=== PATIENT | female | born 1975 | race Caucasian/White ===

== ENCOUNTER 2022-01-03 22:49 | Emergency (ER) | payer SELFPAY ==
[2022-01-03 23:53] LABS: ACETAMINOPHEN <2.0 ug/mL; BLOOD UREA NITROGEN,BUN 8 mg/dL (7.0-18.0); CARBON DIOXIDE,CO2 28.7 mmol/L (21.0-32.0); CHLORIDE,CL 111 mmol/L (98-107); ESTIMATED GFR 109 mL/min (>60); GLUCOSE RANDOM 110 mg/dL (74-106); POTASSIUM,K 3.5 mmol/L (3.5-5.1); SODIUM,NA 149 mmol/L (136-145)
[2022-01-03] MEDS ORDERED: Cephalexin 500 MG Cap PO STA (23:53)
== END 2022-01-04 03:11 | disposition home or self-care (01) ==
LOC: MW.ED 22:49
DX: S61.512A Laceration without foreign body of left wrist, initial encounter (principal); S61.511A Laceration without foreign body of right wrist, initial encounter; F32.9 Major depressive disorder, single episode, unspecified; Z20.822 Contact with and (suspected) exposure to COVID-19; X78.9XXA Intentional self-harm by unspecified sharp object, initial encounter
CPT/HCPCS: 36415; 80053; 80143; 80179; 80305; 80307; 81003; 84443; 84703; 85025; 87635; 93005; 99284; A9270; U0002

== ENCOUNTER 2022-01-19 20:17 | Emergency (ER) | payer MEDICAID ==
[2022-01-19] MEDS ORDERED: Diphtheria,Pertussis(Acell),Tetanus Vaccine 0.5 ML Syringe IM ONE (20:19)
[2022-01-19] MEDS ORDERED: Sodium Chloride 0.9% 1,000 ML IV ONE (21:51)
[2022-01-19 22:47] LABS: ACETAMINOPHEN <2.0 ug/mL; BLOOD UREA NITROGEN,BUN 9 mg/dL (7.0-18.0); CARBON DIOXIDE,CO2 30.8 mmol/L (21.0-32.0); CHLORIDE,CL 105 mmol/L (98-107); GLUCOSE RANDOM 116 mg/dL (74-106); POTASSIUM,K 3.3 mmol/L (3.5-5.1); SODIUM,NA 146 mmol/L (136-145)
[2022-01-19 22:48] LABS: ESTIMATED GFR 93 mL/min (>60)
== END 2022-01-20 02:15 | disposition home or self-care (01) ==
LOC: MW.ED 20:17
DX: S61.512A Laceration without foreign body of left wrist, initial encounter (principal); F10.129 Alcohol abuse with intoxication, unspecified; Z23 Encounter for immunization; X58.XXXA Exposure to other specified factors, initial encounter
CPT/HCPCS: 36415; 80053; 80143; 80179; 80307; 83605; 83735; 84443; 85025; 87040; 90471; 90715; 96360; 99284; J7030

== ENCOUNTER 2022-02-03 01:50 | Emergency (ER) | payer MEDICAID | END 2022-02-03 02:48 | LOC: MW.ED 01:50 | DX: Z02.89 Encounter for other administrative examinations (principal) | CPT/HCPCS: 99282; 99283 ==

== ENCOUNTER 2022-02-09 10:14 | Emergency (ER) | payer MEDICAID | END 2022-02-09 12:22 | disposition home or self-care (01) | LOC: MW.ED 10:14 | DX: F10.10 Alcohol abuse, uncomplicated (principal) | CPT/HCPCS: 99283 ==

== ENCOUNTER 2022-02-13 19:57 | Emergency (ER) | payer MEDICAID ==
[2022-02-13] MEDS ORDERED: Sodium Chloride 0.9% 10 ML Syringe FLUSH PRN (20:14)
[2022-02-13] MEDS ORDERED: Sodium Chloride 0.9% 1,000 ML IV ONE ×2 (20:14→21:48)
[2022-02-13] MEDS ORDERED: Sodium Chloride 0.9% 2.5 ML Syringe FLUSH PRN (20:14)
[2022-02-13] MEDS ORDERED: Ondansetron 4 MG/2 ML SDV IVPUSH ONE (20:35)
[2022-02-13 21:15] LABS: ACETAMINOPHEN <2.0 ug/mL; BLOOD UREA NITROGEN,BUN 24 mg/dL (7.0-18.0); CARBON DIOXIDE,CO2 19.5 mmol/L (21.0-32.0); CHLORIDE,CL 103 mmol/L (98-107); GLUCOSE RANDOM 80 mg/dL (74-106); SODIUM,NA 146 mmol/L (136-145)
[2022-02-13 21:34] LABS: ESTIMATED GFR 71 mL/min (>60)
[2022-02-13] MEDS ORDERED: Potassium Chloride 20 MEQ Tab.ER PO ONE (21:48)
== END 2022-02-13 23:21 | disposition home or self-care (01) ==
LOC: MW.ED 19:57
DX: F10.120 Alcohol abuse with intoxication, uncomplicated (principal); E87.6 Hypokalemia; Y90.8 Blood alcohol level of 240 mg/100 ml or more
CPT/HCPCS: 36415; 80053; 80143; 80179; 80307; 85025; 93005; 96361; 96374; 99284; A9270; J2405; J3490; J7030; 93010

== ENCOUNTER 2022-02-14 06:00 | Emergency (ER) | payer MEDICAID ==
[2022-02-14 07:01] LABS: ACETAMINOPHEN <2.0 ug/mL; BLOOD UREA NITROGEN,BUN 19 mg/dL (7.0-18.0); CARBON DIOXIDE,CO2 23.1 mmol/L (21.0-32.0); CHLORIDE,CL 102 mmol/L (98-107); GLUCOSE RANDOM 96 mg/dL (74-106); POTASSIUM,K 3.9 mmol/L (3.5-5.1); SODIUM,NA 143 mmol/L (136-145)
[2022-02-14 07:05] LABS: ESTIMATED GFR 80 mL/min (>60)
[2022-02-14] MEDS ORDERED: LORazepam 1 MG Tab PO STA ×2 (08:10→10:27)
[2022-02-14] MEDS ORDERED: Ketorolac 30 MG/ML SDV IM ONE (10:26)
[2022-02-14] MEDS ORDERED: Prochlorperazine 10 MG/2 ML SDV IM STA (10:29)
== END 2022-02-14 13:13 | disposition home or self-care (01) ==
LOC: MW.ED 06:00
DX: T76.12XA Child physical abuse, suspected, initial encounter (principal); S40.021A Contusion of right upper arm, initial encounter; S40.022A Contusion of left upper arm, initial encounter; S80.11XA Contusion of right lower leg, initial encounter; S80.12XA Contusion of left lower leg, initial encounter; F10.920 Alcohol use, unspecified with intoxication, uncomplicated; Z20.822 Contact with and (suspected) exposure to COVID-19; Y04.8XXA Assault by other bodily force, initial encounter
CPT/HCPCS: 36415; 80053; 80143; 80179; 80305; 80307; 81001; 83735; 84439; 84443; 84703; 85025; 87635; 96372; 99285; A9270; J0780; J1885; 99284; U0002